=== PATIENT | female | born 1975 | race Caucasian/White ===

== ENCOUNTER 2021-09-26 10:04 | Emergency (ER) | payer BC ==
[~2021-09-26] VITALS: Ht 170.2 cm; Wt 62.6 kg
[2021-09-26 10:10] VITALS: BP_SYST 118
[2021-09-26] MEDS ORDERED: KETOROLAC TROMETHAMINE 30 MG VIAL IM ONE (11:30)
[2021-09-26] MEDS ORDERED: TRAM50TA PO (11:47)
== END 2021-09-26 12:15 | disposition home or self-care (01) ==
LOC: SED 10:04
DX: G44.209 Tension-type headache, unspecified, not intractable (principal); F41.9 Anxiety disorder, unspecified; F17.200 Nicotine dependence, unspecified, uncomplicated; Z79.899 Other long term (current) drug therapy
CPT/HCPCS: 99283; 81025; 96372; J1885

== ENCOUNTER 2023-03-04 07:56 | Emergency (ER) | payer BC, MEDICAID ==
[~2023-03-04] VITALS: Ht 170.2 cm; Wt 74.8 kg
[~2023-03-04 07:56] MED LIST: TRAM50TA PO
[2023-03-04 08:00] VITALS: BP_SYST 115; PULSE 107; RESP 19; TEMP 97.6; O2SAT 98
[2023-03-04] MEDS ORDERED: GEO20 PO (10:58)
[2023-03-04] MEDS ORDERED: LORazepam 2 MG/ML VIAL IM ONE (11:00)
[2023-03-04 11:31] VITALS: BP_SYST 128; PULSE 86; RESP 20; TEMP 98.2; O2SAT 99
== END 2023-03-04 11:33 | disposition home or self-care (01) ==
LOC: SED 07:56
DX: F41.9 Anxiety disorder, unspecified (principal); F51.04 Psychophysiologic insomnia; F31.9 Bipolar disorder, unspecified; F10.20 Alcohol dependence, uncomplicated; J44.9 Chronic obstructive pulmonary disease, unspecified; I10 Essential (primary) hypertension; F17.210 Nicotine dependence, cigarettes, uncomplicated; Z79.899 Other long term (current) drug therapy; Y90.6 Blood alcohol level of 120-199 mg/100 ml
CPT/HCPCS: 99283; 81025; 96372; J2060